=== PATIENT | female | born 1940 | race African-American/Black ===

== ENCOUNTER 2017-08-23 13:09 | Emergency (ER) | payer MEDICARE, BC ==
[~2017-08-23] VITALS: Ht 157.5 cm; Wt 66.0 kg
[~2017-08-23 13:09] MED LIST: ASPI-1159 PO; VITAMIN D; [UNRECOGNIZED DRUG - OTHER]
[2017-08-23] MEDS ORDERED: ALBUTEROL (0.083%) 2.5MG/3ML NEB HHN STA (14:08)
[2017-08-23] MEDS ORDERED: AZITHROMYCIN 500 MG TABLET PO STA (14:08)
[2017-08-23] MEDS ORDERED: PREDNISONE 20MG TABLET PO STA (14:08)
[2017-08-23 14:38] LABS: BASOPHILS % 1.2 % (0.0-2.0); EOSINOPHILS % 5.3 % (0.0-5.0); HEMATOCRIT. 44.6 % (36.0-48.0); HEMOGLOBIN. 14.8 g/dL (12.0-16.0); LYMPHOCYTES % 35.6 % (20.0-50.0); MEAN CORPUSCULAR VOLUME 90.7 fL (81.0-99.0); MONOCYTES % 7.4 % (2.0-8.0); NEUTROPHILS % 50.5 % (40.0-76.0); PLATELET 351 x1000/uL (130-400); RED BLOOD CELL COUNT 4.92 mill/uL (4.2-5.4); RED CELL DISTRIBUTION WIDTH 14.8 % (11.6-14.6)
[2017-08-23 14:43] LABS: CHLORIDE 106 mEq/L (98-107); INR 1.1; PROTHROMBIN TIME 11.8 sec (9.4-11.6)
[2017-08-23 16:04] VITALS: BP 166/72
== END 2017-08-23 16:06 | disposition home or self-care (01) ==
LOC: ER 13:35
DX: J44.1 Chronic obstructive pulmonary disease with (acute) exacerbation (principal); I10 Essential (primary) hypertension; Z87.891 Personal history of nicotine dependence; Z79.82 Long term (current) use of aspirin
CPT/HCPCS: 36415; 71045; 80053; 83880; 84484; 85025; 85610; 93005; 94640; 99285; J7512; J7611

== ENCOUNTER 2018-05-22 18:48 | Emergency (ER) | payer MEDICARE, BC ==
[~2018-05-22] VITALS: Ht 157.5 cm; Wt 50.3 kg
[2018-05-22] MEDS ORDERED: ALBUTEROL (0.083%) 2.5MG/3ML NEB HHN STA (22:17)
[2018-05-22 23:37] VITALS: BP 188/68
== END 2018-05-23 00:01 | disposition home or self-care (01) ==
LOC: ER 18:48
DX: B34.9 Viral infection, unspecified (principal); I10 Essential (primary) hypertension; M19.90 Unspecified osteoarthritis, unspecified site; J44.9 Chronic obstructive pulmonary disease, unspecified; I25.10 Atherosclerotic heart disease of native coronary artery without angina pectoris; Z95.1 Presence of aortocoronary bypass graft; Z79.82 Long term (current) use of aspirin
CPT/HCPCS: 71045; 94640; 99283; J7611

== ENCOUNTER 2018-08-06 08:38 | Inpatient (IN) | payer MEDICARE, BC ==
[~2018-08-06] VITALS: Ht 157.5 cm; Wt 46.8 kg
[2018-08-06] MEDS ORDERED: ALBUTEROL (0.083%) 2.5MG/3ML NEB HHN STA (10:32)
[2018-08-06] MEDS ORDERED: PREDNISONE 20MG TABLET PO STA (10:32)
[2018-08-06 10:52] LABS: HEMATOCRIT. 43.9 % (36.0-48.0); HEMOGLOBIN. 14.5 g/dL (12.0-16.0); MEAN CORPUSCULAR VOLUME 90.8 fL (81.0-99.0); MEAN PLATELET VOLUME 8.8 fl (7.4-10.4); PLATELET 456 x1000/uL (130-400); RED BLOOD CELL COUNT 4.84 mill/uL (4.2-5.4); RED CELL DISTRIBUTION WIDTH 15.2 % (11.6-14.6)
[2018-08-06 11:00] LABS: CHLORIDE 107 mEq/L (98-107); PROTHROMBIN TIME 10.8 sec (9.6-11.0)
[2018-08-06 11:21] LABS: PLATELET ESTIMATE SLIGHTLY INCREASED
[2018-08-06] MEDS ORDERED: DOXYCYCLINE HYCLATE 100MG CAPSULE PO ONE (11:30)
[2018-08-06] MEDS ORDERED: DOCUSATE SODIUM 100MG CAPSULE PO PRN (13:45)
[2018-08-06] MEDS ORDERED: ACETAMINOPHEN 325MG TABLET PO PRN (13:45)
[2018-08-06] MEDS ORDERED: IPRATROPIUM/ALBUTEROL 0.5-3(2.5)MG/3ML NEB INH SCH (13:45)
[2018-08-06] MEDS ORDERED: ONDANSETRON HCL 4MG/2ML INJ IV PRN (13:45)
[2018-08-06] MEDS ORDERED: CLONIDINE 0.1MG TABLET PO PRN (13:45)
[2018-08-06] MEDS ORDERED: LIDOCAINE HCL/PF 1% 2ML VIAL ONE (14:38)
[2018-08-06 15:34] VITALS: BP 171/56
[2018-08-06] MEDS ORDERED: METHYLPREDNISOLONE SOD SUCC 125 MG/2 ML VIAL IV SCH (16:00)
[2018-08-06] MEDS ORDERED: AMLO5TAB88 MT (16:55)
[2018-08-06 17:00] VITALS: BP 169/63
[2018-08-06] MEDS ORDERED: AZITHROMYCIN 500 MG in DEXT 5% WATER 250 ML IV SCH (17:00)
[2018-08-06] MEDS: ENOXAPARIN 40MG/0.4ML SYR SUBCUT SCH (17:28)
[2018-08-06 17:53] LABS: CLARITY URINE CLEAR (CLEAR); COLOR URINE YELLOW (YELLOW); KETONES URINE TRACE (NEGATIVE); LEUKOCYTE ESTERASE URINE NEGATIVE (NEGATIVE); NITRITE URINE POSITIVE (NEGATIVE); OCCULT BLOOD URINE TRACE (NEGATIVE); PROTEIN URINE 1+ (NEGATIVE); SPECIFIC GRAVITY URINE 1.015 (1.005-1.030); UROBILINOGEN URINE 0.2 E.U./dL (0.2-1.0)
[2018-08-06 17:56] LABS: BG BASE EXCESS 0.9 mmol/L (-2.0-2.0); BG CARBOXYHEMOGLOBIN 0.9 % (0.5-1.5); BG DEOXYHEMOGLOBIN 4.7 % (0.0-5.0); BG FRACTION INSPIRED OXYGEN 21; BG HCO3 ACT 24.5 mmol/L (22.0-26.0); BG METHEMOGLOBIN 0.2 % (0.0-1.5); BG OXYGEN SATURATION 95.2 % (92.0-98.5); BG OXYHEMOGLOBIN 94.2 % (94.0-97.0); BG PCO2 36.2 mmHg (35.0-45.0); BG PH 7.448 (7.350-7.450); BG PO2 73.7 mmHg (75.0-100.0); BG SAMPLE SITE RIGHT BRACHIAL; BG TOTAL HEMOGLOBIN 15.1 g/dL (12.0-18.0); BG VENT MODE ROOM AIR
[2018-08-06 18:04] LABS: *AMPHETAMINES SCREEN URINE NEGATIVE (NEGATIVE); *BARBITURATES SCREEN URINE NEGATIVE (NEGATIVE); *BENZODIAZEPINES SCREEN URINE NEGATIVE (NEGATIVE); *COCAINE SCREEN URINE NEGATIVE (NEGATIVE); METHADONE URINE SCREEN NEGATIVE (NEGATIVE); OPIATES URINE SCREEN NEGATIVE (NEGATIVE)
[2018-08-06 18:05] LABS: CANNABINOID URINE SCREEN NEGATIVE (NEGATIVE); PHENCYCLIDINE URINE SCREEN NEGATIVE (NEGATIVE)
[2018-08-06] MEDS: AMLODIPINE 5MG TABLET PO SCH (18:58)
[2018-08-06 20:00] VITALS: BP 152/58
[2018-08-06] MEDS: IPRATROPIUM/ALBUTEROL 0.5-3(2.5)MG/3ML NEB INH SCH (21:06)
[2018-08-07] VITALS: BP 141/60
[2018-08-07] MEDS: METHYLPREDNISOLONE SOD SUCC 40 MG/ML VIAL IV SCH ×3 (00:21→20:27)
[2018-08-07] MEDS: IPRATROPIUM/ALBUTEROL 0.5-3(2.5)MG/3ML NEB INH SCH ×3 (01:56→14:25)
[2018-08-07 04:00] VITALS: BP 146/55
[2018-08-07 07:00] LABS: HEMATOCRIT. 41.2 % (36.0-48.0); HEMOGLOBIN. 13.7 g/dL (12.0-16.0); MEAN CORPUSCULAR HEMOGLOBIN 29.9 pg (28.0-32.0); MEAN CORPUSCULAR VOLUME 89.6 fL (81.0-99.0); PLATELET 512 x1000/uL (130-400); RED BLOOD CELL COUNT 4.59 mill/uL (4.2-5.4); RED CELL DISTRIBUTION WIDTH 14.8 % (11.6-14.6)
[2018-08-07 07:23] LABS: CHLORIDE 106 mEq/L (98-107)
[2018-08-07 07:30] LABS: LDL CHOLESTEROL 67 mg/dL (5-100)
[2018-08-07 07:31] LABS: HDL CHOLESTEROL 53 mg/dL (40-59)
[2018-08-07 08:00] VITALS: BP 148/60
[2018-08-07] MEDS: AMLODIPINE 5MG TABLET PO SCH (08:38)
[2018-08-07 09:47] LABS: BG BASE EXCESS -0.6 mmol/L (-2.0-2.0); BG CARBOXYHEMOGLOBIN 0.7 % (0.5-1.5); BG DEOXYHEMOGLOBIN 3.2 % (0.0-5.0); BG FRACTION INSPIRED OXYGEN 21; BG HCO3 ACT 23.1 mmol/L (22.0-26.0); BG METHEMOGLOBIN 0.3 % (0.0-1.5); BG OXYGEN SATURATION 96.8 % (92.0-98.5); BG OXYHEMOGLOBIN 95.8 % (94.0-97.0); BG PCO2 35.3 mmHg (35.0-45.0); BG PH 7.434 (7.350-7.450); BG PO2 86.9 mmHg (75.0-100.0); BG SAMPLE SITE RIGHT BRACHIAL; BG TOTAL HEMOGLOBIN 14.6 g/dL (12.0-18.0); BG VENT MODE ROOM AIR
[2018-08-07 10:27] LABS: PLATELET ESTIMATE INCREASED
[2018-08-07 12:00] VITALS: BP 152/61
[2018-08-07] MEDS ORDERED: IOHEXOL-350 100 ML BOTTLE ONE (15:02)
[2018-08-07 16:00] VITALS: BP 173/63
[2018-08-07] MEDS: ENOXAPARIN 40MG/0.4ML SYR SUBCUT SCH (18:04)
[2018-08-07 20:00] VITALS: BP 137/54
[2018-08-07] MEDS ORDERED: AZITHROMYCIN 500 MG in DEXT 5% WATER 250 ML IV SCH (20:00)
[2018-08-08] VITALS: BP 135/55
[2018-08-08 04:00] VITALS: BP 133/55
[2018-08-08 05:42] LABS: HEMATOCRIT. 42.4 % (36.0-48.0); HEMOGLOBIN. 13.7 g/dL (12.0-16.0); MEAN CORPUSCULAR HEMOGLOBIN 29.2 pg (28.0-32.0); MEAN CORPUSCULAR VOLUME 90.2 fL (81.0-99.0); MEAN PLATELET VOLUME 8.8 fl (7.4-10.4); PLATELET 554 x1000/uL (130-400); RED BLOOD CELL COUNT 4.71 mill/uL (4.2-5.4); RED CELL DISTRIBUTION WIDTH 14.8 % (11.6-14.6)
[2018-08-08 07:09] LABS: CHLORIDE 103 mEq/L (98-107)
[2018-08-08] MEDS: IPRATROPIUM/ALBUTEROL 0.5-3(2.5)MG/3ML NEB INH SCH (08:04)
[2018-08-08 08:06] VITALS: BP 142/54
[2018-08-08] MEDS: AMLODIPINE 5MG TABLET PO SCH (08:55)
[2018-08-08] MEDS: METHYLPREDNISOLONE SOD SUCC 40 MG/ML VIAL IV SCH (09:21)
[2018-08-08 11:13] VITALS: BP 142/54
[2018-08-08 12:00] VITALS: BP 135/50
[2018-08-08 12:44] LABS: PLATELET ESTIMATE MARKEDLY INCREASED
== END 2018-08-08 13:42 | disposition home or self-care (01) | DRG 189 ==
LOC: ER 08:54 → 7WST 13:01 → EDBEDREQTM 13:09 → EDBEDREQ 13:09
PROVIDERS: ADMIT Internal Medicine Nephrology; ATTEND Internal Medicine Nephrology
DX: J96.00 Acute respiratory failure, unspecified whether with hypoxia or hypercapnia (principal); J44.1 Chronic obstructive pulmonary disease with (acute) exacerbation; E44.0 Moderate protein-calorie malnutrition; Z68.1 Body mass index [BMI] 19.9 or less, adult; J44.0 Chronic obstructive pulmonary disease with (acute) lower respiratory infection; I11.9 Hypertensive heart disease without heart failure; Z82.5 Family history of asthma and other chronic lower respiratory diseases; Z87.891 Personal history of nicotine dependence
CPT/HCPCS: 36415; 36600; 71045; 71275; 80048; 80061; 80305; 82375; 82805; 83880; 84484; 87070; 93005; 93306; 93970; 94640; 96365; 96372; 96375; 99285; C1893; J0456; J1650; J2920; J2930; J3490; J7040; J7060; J7512; J7611; J7620; Q9967

== ENCOUNTER 2018-11-15 13:51 | Emergency (ER) | payer MEDICARE, BC ==
[~2018-11-15] VITALS: Ht 162.6 cm; Wt 60.0 kg
[~2018-11-15 13:51] MED LIST changes: +AMLO5TAB88 MT; -ASPI-1159 PO; +ASPI-1393 PO
[2018-11-15] MEDS ORDERED: KETOROLAC 30MG/ML VIAL IM ONE (14:45)
[2018-11-15] MEDS ORDERED: PREDNISONE 20MG TABLET PO ONE (15:00)
[2018-11-15 15:37] VITALS: BP 152/70
== END 2018-11-15 15:38 | disposition home or self-care (01) ==
LOC: ER 13:51
DX: M13.88 Other specified arthritis, other site (principal); I10 Essential (primary) hypertension; J44.9 Chronic obstructive pulmonary disease, unspecified; Z87.891 Personal history of nicotine dependence; Z79.899 Other long term (current) drug therapy
CPT/HCPCS: 96372; 99283; J1885; J7512

== ENCOUNTER 2019-02-13 13:20 | Emergency (ER) | payer MEDICARE, BC ==
[~2019-02-13] VITALS: Ht 157.5 cm; Wt 53.0 kg
[2019-02-13 18:00] VITALS: BP 165/73
[2019-02-13] MEDS ORDERED: AMLODIPINE 5MG TABLET PO NR (18:00)
[2019-02-13] MEDS ORDERED: DEXAMETHASONE 4MG TABLET PO NR (18:30)
== END 2019-02-13 18:00 | disposition home or self-care (01) ==
LOC: ER 16:37
DX: M06.9 Rheumatoid arthritis, unspecified (principal); M25.559 Pain in unspecified hip; M25.569 Pain in unspecified knee; J44.9 Chronic obstructive pulmonary disease, unspecified; I10 Essential (primary) hypertension; Z87.891 Personal history of nicotine dependence; Z79.82 Long term (current) use of aspirin
CPT/HCPCS: 99283; J8540

== ENCOUNTER 2021-02-13 21:48 | Inpatient (IN) | payer MEDICARE, BC ==
[~2021-02-13] VITALS: Ht 160 cm; Wt 52.6 kg
[~2021-02-13 21:48] MED LIST changes: -AMLO5TAB88 MT; +AMLO5TAB88 PO; -ASPI-1393 PO; +ASPI-1497 PO
[2021-02-13] MEDS ORDERED: PREDNISONE 20MG TABLET PO STA (22:19)
[2021-02-13 23:01] LABS: BASOPHILS % 0.9 % (0.0-2.0); EOSINOPHILS % 4.8 % (0.0-5.0); HEMATOCRIT. 42.4 % (36.0-48.0); HEMOGLOBIN. 13.8 g/dL (12.0-16.0); MEAN CORPUSCULAR HEMOGLOBIN 29.6 pg (28.0-32.0); MEAN CORPUSCULAR VOLUME 90.6 fL (81.0-99.0); MEAN PLATELET VOLUME 8.8 fl (7.4-10.4); MONOCYTES % 7.4 % (2.0-8.0); NEUTROPHILS % 56.9 % (40.0-76.0); PLATELET 340 x1000/uL (130-400); RED BLOOD CELL COUNT 4.68 mill/uL (4.2-5.4)
[2021-02-13 23:06] LABS: CHLORIDE 109 mEq/L (98-107)
[2021-02-13] MEDS ORDERED: FUROSEMIDE 20MG/2ML VIAL IVP SCH (23:45)
[2021-02-14] MEDS ORDERED: ALBU6.7H9 INH (03:08)
[2021-02-14 03:10] VITALS: BP 127/91
[2021-02-14 03:15] VITALS: BP 127/91
[2021-02-14] MEDS ORDERED: GUAIFENESIN 200MG/10ML SUGAR FREE UDC PO PRN (05:45)
[2021-02-14] MEDS ORDERED: DIPHENHYDRAMINE 50MG/ML VIAL IV PRN (05:45)
[2021-02-14] MEDS ORDERED: CLONIDINE 0.1MG TABLET PO PRN (05:45)
[2021-02-14] MEDS ORDERED: ACETAMINOPHEN 325MG TABLET PO PRN (05:45)
[2021-02-14] MEDS ORDERED: DOCUSATE SODIUM 100MG CAPSULE PO PRN (05:45)
[2021-02-14] MEDS ORDERED: ONDANSETRON HCL 4MG/2ML INJ IV PRN (05:45)
[2021-02-14 08:00] VITALS: BP 165/70
[2021-02-14] MEDS ORDERED: IPRATROPIUM/ALBUTEROL 0.5-3(2.5)MG/3ML NEB HHN SCH (08:00)
[2021-02-14] MEDS: ENOXAPARIN 40MG/0.4ML SYR SUBCUT SCH (09:02)
[2021-02-14] MEDS: FUROSEMIDE 40MG/4ML VIAL IVP SCH ×2 (09:02→20:54)
[2021-02-14 10:48] LABS: CREATINE KINASE MB FRACTION 2.9 ng/mL (0.5-3.6)
[2021-02-14 12:00] VITALS: BP 127/59
[2021-02-14] MEDS ORDERED: IPRATROPIUM/ALBUTEROL 0.5-3(2.5)MG/3ML NEB HHN PRN (12:30)
[2021-02-14] MEDS: AMLODIPINE 5MG TABLET PO SCH (13:00)
[2021-02-14] MEDS: DILTIAZEM HCL 60MG TABLET PO SCH ×2 (13:44→20:53)
[2021-02-14] MEDS: PREDNISONE 20MG TABLET PO SCH (13:44)
[2021-02-14 15:12] LABS: BG BASE EXCESS 0.8 mmol/L (-2.0-2.0); BG DEOXYHEMOGLOBIN 4.1 % (0.0-5.0); BG FRACTION INSPIRED OXYGEN 21; BG HCO3 ACT 24.2 mmol/L (22.0-26.0); BG METHEMOGLOBIN 0.2 % (0.0-1.5); BG OXYGEN SATURATION 95.9 % (92.0-98.5); BG OXYHEMOGLOBIN 94.7 % (94.0-97.0); BG PCO2 35.4 mmHg (35.0-45.0); BG PH 7.453 (7.350-7.450); BG PO2 74.7 mmHg (75.0-100.0); BG SAMPLE SITE RIGHT BRACHIAL; BG TOTAL HEMOGLOBIN 15.6 g/dL (12.0-18.0); BG VENT MODE ROOM AIR
[2021-02-14 16:00] VITALS: BP 154/61
[2021-02-14 17:52] LABS: CREATINE KINASE MB FRACTION 2.4 ng/mL (0.5-3.6)
[2021-02-14 18:10] LABS: HEPATITIS B SURFACE ANTIGEN NEGATIVE
[2021-02-14] MEDS ORDERED: DIATR MEGLU/DIATRIZOATE SOLN 30ML PO SCH (19:15)
[2021-02-14 20:00] VITALS: BP 151/64
[2021-02-14] MEDS: GUAIFENESIN 600MG ER TABLET PO SCH (20:53)
[2021-02-14] MEDS: IPRATROPIUM/ALBUTEROL 0.5-3(2.5)MG/3ML NEB HHN SCH (21:50)
[2021-02-14] MEDS: BUDESONIDE 0.5MG/2ML NEB HHN SCH (21:50)
[2021-02-15] VITALS: BP 150/54
[2021-02-15 04:00] VITALS: BP 94/73
[2021-02-15] MEDS: IPRATROPIUM/ALBUTEROL 0.5-3(2.5)MG/3ML NEB HHN SCH ×4 (04:25→21:20)
[2021-02-15 05:22] LABS: CHLORIDE 101 mEq/L (98-107)
[2021-02-15] MEDS: DILTIAZEM HCL 60MG TABLET PO SCH ×3 (05:48→21:49)
[2021-02-15 07:21] LABS: BASOPHILS % 0.3 % (0.0-2.0); EOSINOPHILS % 0.1 % (0.0-5.0); LYMPHOCYTES % 19.3 % (20.0-50.0); MEAN CORPUSCULAR HEMOGLOBIN 29.1 pg (28.0-32.0); MEAN CORPUSCULAR VOLUME 89.8 fL (81.0-99.0); MEAN PLATELET VOLUME 9.4 fl (7.4-10.4); MONOCYTES % 7.2 % (2.0-8.0); NEUTROPHILS % 73.1 % (40.0-76.0); PLATELET 383 x1000/uL (130-400); RED BLOOD CELL COUNT 5.64 mill/uL (4.2-5.4); RED CELL DISTRIBUTION WIDTH 15.1 % (11.6-14.6)
[2021-02-15 07:46] LABS: HEMATOCRIT. 50.7 % (36.0-48.0); HEMOGLOBIN. 16.4 g/dL (12.0-16.0)
[2021-02-15 08:00] VITALS: BP 151/43
[2021-02-15] MEDS: FUROSEMIDE 40MG/4ML VIAL IVP SCH ×2 (08:48→21:50)
[2021-02-15] MEDS: GUAIFENESIN 600MG ER TABLET PO SCH ×2 (08:49→21:50)
[2021-02-15] MEDS: AMLODIPINE 5MG TABLET PO SCH (08:49)
[2021-02-15] MEDS: ENOXAPARIN 40MG/0.4ML SYR SUBCUT SCH (08:49)
[2021-02-15] MEDS: PREDNISONE 20MG TABLET PO SCH (08:49)
[2021-02-15] MEDS: BUDESONIDE 0.5MG/2ML NEB HHN SCH ×2 (09:10→21:17)
[2021-02-15 12:00] VITALS: BP 159/66
[2021-02-15] MEDS ORDERED: IOHEXOL-300 100 ML BOTTLE ONE (12:05)
[2021-02-15] MEDS: CARVEDILOL 6.25 MG TABLET PO SCH ×2 (13:43→21:50)
[2021-02-15 16:00] VITALS: BP 120/54
[2021-02-15 20:00] VITALS: BP 146/53
[2021-02-16] VITALS: BP 131/64
[2021-02-16] MEDS: IPRATROPIUM/ALBUTEROL 0.5-3(2.5)MG/3ML NEB HHN SCH ×4 (01:28→20:55)
[2021-02-16 04:00] VITALS: BP 135/56
[2021-02-16] MEDS: DILTIAZEM HCL 60MG TABLET PO SCH ×3 (05:13→21:17)
[2021-02-16 08:00] VITALS: BP 129/59
[2021-02-16] MEDS: BUDESONIDE 0.5MG/2ML NEB HHN SCH ×2 (09:11→20:55)
[2021-02-16] MEDS: PREDNISONE 20MG TABLET PO SCH (09:17)
[2021-02-16] MEDS: GUAIFENESIN 600MG ER TABLET PO SCH ×2 (09:17→21:17)
[2021-02-16] MEDS: FUROSEMIDE 40MG/4ML VIAL IVP SCH ×2 (09:17→21:16)
[2021-02-16] MEDS: ENOXAPARIN 40MG/0.4ML SYR SUBCUT SCH (09:17)
[2021-02-16] MEDS: CARVEDILOL 6.25 MG TABLET PO SCH ×2 (09:17→21:17)
[2021-02-16 09:37] LABS: BASOPHILS % 0.2 % (0.0-2.0); EOSINOPHILS % 0.5 % (0.0-5.0); HEMATOCRIT. 50.1 % (36.0-48.0); HEMOGLOBIN. 16.5 g/dL (12.0-16.0); LYMPHOCYTES % 20.1 % (20.0-50.0); MEAN CORPUSCULAR HEMOGLOBIN 29.6 pg (28.0-32.0); MEAN CORPUSCULAR VOLUME 89.7 fL (81.0-99.0); MEAN PLATELET VOLUME 9.5 fl (7.4-10.4); MONOCYTES % 5.2 % (2.0-8.0); PLATELET 438 x1000/uL (130-400); RED BLOOD CELL COUNT 5.58 mill/uL (4.2-5.4); RED CELL DISTRIBUTION WIDTH 15.1 % (11.6-14.6)
[2021-02-16 12:00] VITALS: BP 135/48
[2021-02-16 16:00] VITALS: BP 166/58
[2021-02-16 20:00] VITALS: BP 149/60
[2021-02-17] VITALS: BP 140/76
[2021-02-17] MEDS: IPRATROPIUM/ALBUTEROL 0.5-3(2.5)MG/3ML NEB HHN SCH ×2 (02:15→08:52)
[2021-02-17 04:00] VITALS: BP 100/60
[2021-02-17] MEDS: DILTIAZEM HCL 60MG TABLET PO SCH (05:21)
[2021-02-17 06:53] LABS: BASOPHILS % 0.4 % (0.0-2.0); EOSINOPHILS % 0.2 % (0.0-5.0); HEMATOCRIT. 49.9 % (36.0-48.0); HEMOGLOBIN. 16.3 g/dL (12.0-16.0); LYMPHOCYTES % 19.2 % (20.0-50.0); MEAN CORPUSCULAR HEMOGLOBIN 29.6 pg (28.0-32.0); MEAN CORPUSCULAR VOLUME 90.3 fL (81.0-99.0); MEAN PLATELET VOLUME 9.2 fl (7.4-10.4); MONOCYTES % 7.1 % (2.0-8.0); NEUTROPHILS % 73.1 % (40.0-76.0); PLATELET 443 x1000/uL (130-400); RED BLOOD CELL COUNT 5.52 mill/uL (4.2-5.4); RED CELL DISTRIBUTION WIDTH 14.9 % (11.6-14.6)
[2021-02-17 07:00] LABS: CHLORIDE 98 mEq/L (98-107)
[2021-02-17 08:00] VITALS: BP 132/69
[2021-02-17] MEDS: BUDESONIDE 0.5MG/2ML NEB HHN SCH (08:51)
[2021-02-17] MEDS: GUAIFENESIN 600MG ER TABLET PO SCH ×2 (09:08→21:30)
[2021-02-17] MEDS: FUROSEMIDE 40MG/4ML VIAL IVP SCH ×2 (09:08→21:30)
[2021-02-17] MEDS: CARVEDILOL 6.25 MG TABLET PO SCH (09:08)
[2021-02-17] MEDS: PREDNISONE 20MG TABLET PO SCH ×2 (09:08→17:59)
[2021-02-17] MEDS: ENOXAPARIN 40MG/0.4ML SYR SUBCUT SCH (09:09)
[2021-02-17 11:52] VITALS: BP 153/59
[2021-02-17] MEDS: CLONIDINE 0.1MG TABLET PO SCH ×2 (13:55→21:30)
[2021-02-17] MEDS: DILTIAZEM HCL 90MG TABLET PO SCH ×2 (13:55→17:59)
[2021-02-17 16:00] VITALS: BP 122/46
[2021-02-17 20:00] VITALS: BP 135/57
[2021-02-18] VITALS: BP 115/48
[2021-02-18 04:00] VITALS: BP 29/59
[2021-02-18] MEDS: CLONIDINE 0.1MG TABLET PO SCH (06:00)
[2021-02-18 06:11] LABS: CHLORIDE 94 mEq/L (98-107)
[2021-02-18] MEDS: DILTIAZEM HCL 90MG TABLET PO SCH ×3 (06:19→12:06)
[2021-02-18 06:23] LABS: BASOPHILS % 0.3 % (0.0-2.0); HEMATOCRIT. 47.7 % (36.0-48.0); HEMOGLOBIN. 15.7 g/dL (12.0-16.0); LYMPHOCYTES % 9.6 % (20.0-50.0); MEAN CORPUSCULAR HEMOGLOBIN 29.4 pg (28.0-32.0); MEAN CORPUSCULAR VOLUME 89.3 fL (81.0-99.0); MEAN PLATELET VOLUME 9.4 fl (7.4-10.4); MONOCYTES % 3.2 % (2.0-8.0); NEUTROPHILS % 86.9 % (40.0-76.0); PLATELET 447 x1000/uL (130-400); RED BLOOD CELL COUNT 5.34 mill/uL (4.2-5.4); RED CELL DISTRIBUTION WIDTH 14.6 % (11.6-14.6)
[2021-02-18 08:00] VITALS: BP 136/46
[2021-02-18] MEDS: PREDNISONE 20MG TABLET PO SCH (08:53)
[2021-02-18] MEDS: FUROSEMIDE 40MG/4ML VIAL IVP SCH (08:53)
[2021-02-18] MEDS: GUAIFENESIN 600MG ER TABLET PO SCH (09:44)
[2021-02-18] MEDS: ENOXAPARIN 40MG/0.4ML SYR SUBCUT SCH (11:27)
[2021-02-18 11:33] VITALS: BP 153/51
[2021-02-18 12:29] VITALS: BP 153/95
== END 2021-02-18 13:20 | disposition home or self-care (01) | DRG 291 ==
LOC: ER 21:48 → 7WST 02-14 01:40 → EDBEDREQ 02-14 01:45 → EDBEDREQTM 02-14 01:45 → EDBEDREQDT 02-14 01:45 → ENRESERV 02-14 02:01 → 7EST 02-14 11:32
PROVIDERS: ADMIT Internal Medicine Nephrology; ATTEND Internal Medicine Nephrology
DX: I11.0 Hypertensive heart disease with heart failure (principal); J96.01 Acute respiratory failure with hypoxia; I50.23 Acute on chronic systolic (congestive) heart failure; J44.1 Chronic obstructive pulmonary disease with (acute) exacerbation; E46 Unspecified protein-calorie malnutrition; I42.9 Cardiomyopathy, unspecified; D25.9 Leiomyoma of uterus, unspecified; D64.9 Anemia, unspecified; D75.1 Secondary polycythemia; E78.5 Hyperlipidemia, unspecified; R74.01 Elevation of levels of liver transaminase levels; R07.89 Other chest pain; K57.90 Diverticulosis of intestine, part unspecified, without perforation or abscess without bleeding; K80.20 Calculus of gallbladder without cholecystitis without obstruction; N28.1 Cyst of kidney, acquired; Z87.891 Personal history of nicotine dependence; Z98.51 Tubal ligation status; Z79.82 Long term (current) use of aspirin; Z68.20 Body mass index [BMI] 20.0-20.9, adult
CPT/HCPCS: 36415; 36600; 71045; 74177; 76700; 80048; 80053; 80061; 80076; 82375; 82550; 82553; 82805; 83880; 84484; 85025; 86705; 86709; 86803; 87340; 93005; 93306; 93970; 94640; 99291; C1893; J1650; J1940; J7512; J7626; Q9963; Q9967